=== PATIENT | female | born 1960 | race Caucasian/White ===

== ENCOUNTER → 2018-08-31 10:51 | Outpatient (CLI) | payer OTHER, SELFPAY ==
[2018-08-31 12:37] LABS: Alanine Aminotransferase 37 IU/L (9-52); Aspartate Aminotransferase 26 IU/L (14-36); BUN Creatinine Ratio 21.4 (6-22); Blood Urea Nitrogen 15 mg/dL (7-17); Calcium 9.5 mg/dL (8.4-10.2); Carbon Dioxide 27 mmol/L (22-32); Chloride 107 mmol/L (98-107); Cholesterol 183 mg/dL (140-199); Estimated Glomerular Filt Rate > 60.0 mL/min (>60); Glucose 94 mg/dL (70-100); HDL Cholesterol 44 mg/dL (40-60); HEMOLYSIS < 15 (0-50); LDL Cholesterol Calculated 113 mg/dL (<100); Potassium 4.5 mmol/L (3.4-5.1); Sodium 140 mmol/L (137-145); Triglycerides 132 mg/dL (35-150)
[2018-08-31 12:54] LABS: Vitamin D 25 Hydroxy (D3) 34.8 ng/mL (30.0-100.0)
== END ==
PROVIDERS: PCP Internal Medicine; Visit Provider Internal Medicine
DX: I10 Essential (primary) hypertension (principal); E78.2 Mixed hyperlipidemia; E55.9 Vitamin D deficiency, unspecified
CPT/HCPCS: 36415; 80048; 80061; 82306; 84450; 84460

== ENCOUNTER → 2018-10-06 11:27 | Outpatient (CLI) | payer OTHER, SELFPAY | PROVIDERS: PCP Internal Medicine; Visit Provider Physician Assistant | DX: L02.92 Furuncle, unspecified (principal) | CPT/HCPCS: 87070; 87075; 87077; 87186; 87205 ==

== ENCOUNTER → 2019-07-04 18:19 | Outpatient (ROUT) | payer OTHER, SELFPAY | PROVIDERS: PCP Internal Medicine; Visit Provider Internal Medicine | DX: R39.9 Unspecified symptoms and signs involving the genitourinary system (principal) | CPT/HCPCS: 87077; 87086; 87147 ==

== ENCOUNTER → 2019-07-18 17:13 | Outpatient (ROUT) | payer OTHER, SELFPAY | PROVIDERS: PCP Internal Medicine; Visit Provider Internal Medicine | DX: R39.9 Unspecified symptoms and signs involving the genitourinary system (principal) | CPT/HCPCS: 87086 ==

== ENCOUNTER → 2019-07-23 12:50 | Outpatient (CLI) | payer OTHER, SELFPAY ==
--- NOTE | 2019-07-23 | DI.MRI.S_ITS ---
PROCEDURE: MR PELIS WO/W CON INDICATIONS: Intra-abdominal and pelvic swelling, mass and lump. Tube left buttock region mass TECHNIQUE: Noncontrast coronal T1 spin echo and STIR, sagittal T1 spin echo with fat saturation and STIR, axial T1 spin echo and T2 fast spin echo with fat saturation. After the administration of contrast, axial/sagittal/coronal T1 spin echo with fat saturation through the pelvis. COMPARISON: None. FINDINGS: Image quality: Excellent. Bones: The visualized bone marrow demonstrates normal signal on all sequences. The overlying cortex appears intact. No abnormal intraosseous enhancement. Soft tissues: No soft tissue masses are visualized. The scanned muscles demonstrate normal overall bulk and internal signal. Subcutaneous tissues appear normal as well. No abnormal soft tissue enhancement. Unremarkable appearance of uterus. No adnexal masses. No buttock region mass is identified. IMPRESSION: Unremarkable MRI of the pelvis with and without contrast. No buttock region mass is identified. Dictated by: Kel Carrizales M.D. on 07/23/2019 at 16:14 Approved by: Kel Carrizales M.D. on 07/23/2019 at 16:16
[2019-07-23 13:24] LABS: Hematocrit 44.9 % (36-46); Hemoglobin 15.5 g/dL (12.0-16.0); Mean Corpuscular HGB Conc 34.5 % (30-36); Mean Corpuscular Hemoglobin 31.6 PG (26-34); Mean Corpuscular Volume 91.7 fL (80-100); Platelet Count 195 X10^3/uL (150-400); White Blood Cell Count 7.4 X10^3/uL (4.5-11.0)
[2019-07-23 13:50] LABS: Alanine Aminotransferase 25 IU/L (<35); Albumin 4.5 g/dL (3.5-5.0); Albumin Globulin Ratio 1.4 (1.0-2.8); Alkaline Phosphatase 66 U/L (38-126); Aspartate Aminotransferase 27 IU/L (14-36); BUN Creatinine Ratio 25.4 (6-22); Bilirubin Total 0.8 mg/dL (0.2-1.3); Blood Urea Nitrogen 16 mg/dL (7-17); Calcium 9.6 mg/dL (8.4-10.2); Carbon Dioxide 29 mmol/L (22-32); Chloride 105 mmol/L (98-107); Estimated Glomerular Filt Rate > 60.0 mL/min (>60); Globulin 3.2 g/dL (1.7-4.1); Glucose 100 mg/dL (70-100); HEMOLYSIS < 15 (0-50); Lactate Dehydrogenase 416 U/L (313-618); Potassium 4.6 mmol/L (3.4-5.1); Sodium 140 mmol/L (137-145); Total Protein 7.7 g/dL (6.3-8.2)
[2019-07-23 13:51] LABS: Neutrophils Absolute Manual 5106 /uL (3000-5900); RBC Morphology Normal Morphology; Total Cells Counted 100
[2019-07-23 13:52] LABS: C-Reactive Protein Quant < 0.5 mg/dL (<1.0)
[2019-07-23 14:01] LABS: Erythrocyte Sedimentation Rate 5 MM/HR (0-20)
== END ==
PROVIDERS: PCP Internal Medicine; Referring Provider Internal Medicine; Visit Provider Internal Medicine
DX: R19.00 Intra-abdominal and pelvic swelling, mass and lump, unspecified site (principal)
CPT/HCPCS: 72197; 80053; 83615; 85025; 85651; 86140

== ENCOUNTER → 2019-09-04 09:03 | Outpatient (CLI) | payer OTHER, SELFPAY ==
[2019-09-05 20:20] LABS: COVID19 Sendout Not Detected (Not Detect)
== END ==
PROVIDERS: PCP Internal Medicine; Visit Provider Registered Nurse
DX: Z01.818 Encounter for other preprocedural examination (principal)
CPT/HCPCS: 87635

== ENCOUNTER 2019-09-08 06:54 | Day surgery (SDC) | payer OTHER, SELFPAY ==
[2019-09-04 15:20] VITALS: BMI 38.7
[2019-09-08] VITALS (11 sets, daily range): BP systolic 123–176; BP diastolic 75–115; PULSE 72–85; RESP 12–19; TEMP 35.9–36.3; O2SAT 95–98; BMI 35.9
--- NOTE | 2019-09-08 | PATH_ITS ---
[facility] Accession Number: [id number] . 01 Material submitted: . back - LEFT LOWER BACK MASS . 01 Diagnosis: Left Lower Back, Excision: Mature adipose tissue consistent with lipoma. MRV 09/10/2019 1236 Local . 01 Electronically signed: . Octavia Hu MD, Dermatopathologist NPI- [id number] . 01 Gross description: . LEFT LOWER BACK MASS: Received in formalin is 1 piece of adipose tissue measuring 11.7 x 9.5 x 5.0 cm. Sql Programmer sections are submitted in 6 cassettes. /A 09/09/2019 1006 Local . 01 Pathologist provided ICD-10: D17.9 . 01 CPT . 829009 Performed at: [facility] [id number], [place], [place] [id number] MD Bobo Parra MD Phone: [phone]
[2019-09-08] MEDS: LACTATED RINGERS 1,000 ML 42 ML IV (07:43)
--- NOTE | 2019-09-08 07:44 | PM.PREOP ---
Pre-operative Note COVID-19 COVID-19 status: Negative Result date/Date tested (Pos, Neg/Pending): 09/06/19 Interval Note History & Physical reviewed/Exam performed by Physician: Yes Changes to H&P: No
[2019-09-08] MEDS: CLINDAMYCIN 900 MG/50 ML PIGGYBACK 50 MG IV (07:58)
--- NOTE | 2019-09-08 08:24 | SUR.OPER ---
Lateral on padded OR bed, head on pillow, gel axillary roll in place, bottom leg bent with gel pad under knee to foot, upper leg straight and supported with pillows. Upper arm supported by pillows and secured over bottom arm to padded arm board. Safety belt at hip, tape over blanket lower legs.
[2019-09-08] MEDS: BUPIVACAINE 0.5% (PF) VIAL 30 ML INJ (08:30)
--- NOTE | 2019-09-08 09:17 | SUR.PHASEI ---
Report given to Chad Amaya RN. Pt awake, talking, Dressing CDI per RAMIRO Rodrigues
--- NOTE | 2019-09-08 09:27 | PM.OP.1 ---
Operative Date/Time/Diagnoses Date of procedure: 09/08/19 Time of procedure: 09:12 Pre-op diagnosis: Mass left lower back/flank area Post-op diagnosis: same (Probable lipoma) Procedure & Clinicians Procedure: Excision of mass measuring 12 x 8 cm Same procedure as scheduled: Yes Indications: Patient with a large mass on her left lower back. She has localized pain. She has asked that it be removed. Surgeon: All Vlila Click Yes if Unassisted: Yes Anesthesia Type: General Operative Notes Findings: Mass consistent with a lipoma clinically Closure Type: primary Specimen(s): other (Mass) Prosthetic devices, grafts, tissues, transplants, or devices: None Estimated Blood Loss (mL): 15 Blood products transfused: none Procedure in detail: The patient was placed supine on the operating room table and underwent general LMA anesthesia. She was then turned in a right lateral decubitus with padding to appropriate areas. She was prepped and draped in the usual fashion. A transverse incision was made overlying the mass. Was carried down the level the mass. The mass with a large lobulated fatty a fair. I dissected with blunt and sharp dissection removing it from interdigitated pockets in the subcu fat. The mass was excised in its entirety. Meticulous hemostasis was achieved. The closure was in 3 layers. The deepest layer of fat followed by more superficial layer followed by this skin with a running 4 0 Vicryl subcuticular stitch. Steri-Strips and Mastisol were applied. The patient was placed on her bed awakened extubated taken recovery area in good condition. Complications: none Post-operative Condition: stable Disposition: PACU
[2019-09-08] MEDS: fentaNYL 100 MCG/2 ML INJ IV ×2 (09:38→09:43)
[2019-09-08] MEDS: OXYCODONE/ACETAMINOPHEN 5/325 TABLET 1 TAB PO ×2 (09:46→10:24)
== END 2019-09-08 10:50 | disposition home or self-care (01) ==
PROVIDERS: PCP Internal Medicine; Referring Provider Specialist; Visit Provider Specialist
PROC: (CPT 21931; principal; 2019-09-08 07:45)
DX: R22.2 Localized swelling, mass and lump, trunk (principal); I10 Essential (primary) hypertension; E78.5 Hyperlipidemia, unspecified; G47.33 Obstructive sleep apnea (adult) (pediatric)
CPT/HCPCS: 21931; J1100; J1885; J2250; J2405; J2704; J3010

== ENCOUNTER → 2019-09-16 18:58 | Outpatient (ROUT) | payer OTHER, SELFPAY | PROVIDERS: PCP Internal Medicine; Visit Provider Internal Medicine | DX: H60.92 Unspecified otitis externa, left ear (principal) | CPT/HCPCS: 87070; 87075; 87077; 87147; 87205 ==

== ENCOUNTER → 2019-09-27 08:14 | Outpatient (CLI) | payer OTHER, SELFPAY ==
[2019-09-27 09:51] LABS: Add Manual Diff / Slide Review NO; Basophils Absolute Auto 0 /uL (0-100); Basophils Percent Auto 0.7 % (0-2); Eosinophils Absolute Auto 100 /uL (0-450); Eosinophils Percent Auto 1.1 % (2-4); Hematocrit 47.2 % (36-46); Hemoglobin 15.9 g/dL (12.0-16.0); Lymphocytes Absolute Auto 1200 /uL (1100-4500); Lymphocytes Percent Auto 18.7 % (25-40); Mean Corpuscular HGB Conc 33.7 % (30-36); Mean Corpuscular Hemoglobin 30.8 PG (26-34); Mean Corpuscular Volume 91.4 fL (80-100); Monocytes Absolute Auto 300 /uL (0-900); Monocytes Percent Auto 5.2 % (3-14); Neutrophils Absolute Auto 4700 /uL (1500-7000); Neutrophils Percent Auto 74.3 % (50-75); Platelet Count 198 X10^3/uL (150-400); Red Blood Cell Count 5.16 X10^6/uL (4.0-5.2); Red Cell Distribution Width 13.2 % (11.6-14.8); White Blood Cell Count 6.3 X10^3/uL (4.5-11.0)
[2019-09-27 11:10] LABS: Alanine Aminotransferase 26 IU/L (<35); Albumin 4.5 g/dL (3.5-5.0); Albumin Globulin Ratio 1.7 (1.0-2.8); Alkaline Phosphatase 76 U/L (38-126); Aspartate Aminotransferase 26 IU/L (14-36); BUN Creatinine Ratio 17.5 (6-22); Blood Urea Nitrogen 11 mg/dL (7-17); Calcium 9.9 mg/dL (8.4-10.2); Carbon Dioxide 27 mmol/L (22-32); Chloride 107 mmol/L (98-107); Cholesterol 200 mg/dL (140-199); Estimated Glomerular Filt Rate > 60.0 mL/min (>60); Globulin 2.6 g/dL (1.7-4.1); Glucose 97 mg/dL (70-100); HDL Cholesterol 62 mg/dL (40-60); HEMOLYSIS < 15 (0-50); LDL Cholesterol Calculated 115 mg/dL (<100); Potassium 4.8 mmol/L (3.4-5.1); Sodium 140 mmol/L (137-145); Total Protein 7.1 g/dL (6.3-8.2); Triglycerides 114 mg/dL (35-150); Uric Acid 5.3 mg/dL (2.5-6.2)
[2019-09-27 11:39] LABS: TSH w/ Reflex to FT4 0.86 uIU/mL (0.47-4.68)
[2019-09-27 15:31] LABS: Appearance Urine UA CLEAR; Bilirubin Urine UA NEGATIVE (NEGATIVE); Color Urine UA YELLOW; Glucose Urine UA NEGATIVE (Negative); Ketones Urine UA NEGATIVE (NEGATIVE); Leukocyte Esterase Urine UA 1+ (NEGATIVE); Nitrite Urine UA NEGATIVE (Negative); Occult Blood Urine UA 1+ (Negative); Protein Urine UA NEGATIVE (Negative); Specific Gravity Urine UA 1.015 (1.000-1.035); Urobilinogen Urine UA 0.2 E.U./dL (0.2)
[2019-09-27 15:51] LABS: Bacteria Urine Few (2-10); Culture Indicated Urine Specimen Cultured; RBC Urine 0-1/HPF (0-5/HPF); Squamous Epithelial Cell Urine 1-5 /HPF (0-5/HPF); WBC Urine 1-5/HPF (0-5/HPF); pH Urine UA 6.5 (4.5-8.0)
[2019-10-03 01:36] LABS: Aldosterone/Renin Activity Rat 12.8 (0.0-30.0); Plama Renin, LC/MS/MS 0.571 ng/mL/hr (0.167-5.380)
== END ==
PROVIDERS: PCP Internal Medicine; Referring Provider Internal Medicine; Visit Provider Internal Medicine
DX: H60.92 Unspecified otitis externa, left ear (principal); G47.33 Obstructive sleep apnea (adult) (pediatric); I10 Essential (primary) hypertension; E78.5 Hyperlipidemia, unspecified
CPT/HCPCS: 36415; 80053; 80061; 81001; 82088; 84244; 84443; 84550; 85025; 87086

== ENCOUNTER → 2019-10-13 06:44 | Outpatient (CLI) | payer OTHER, SELFPAY ==
--- NOTE | 2019-10-13 07:02 | DI.ECHO.S_ITS ---
Echocardiogram Report + + :Name: CHRISTOS BARKLEY Study Date: 10/13/2019 Height: 66 in : :[facility] Weight: 224 lb : : Gender: Female BSA: 2.1 m2 : :: 1960 Age: 59 yrs BP: 140/88 mmHg: :Reason For Study: MURMUR : :Ordering Physician: CHRIS SCHMITZ : :Rufus Performed By: Yue Asif : :Referring: CHRIS SCHMITZ L : + + Interpretation Summary Borderline concentric left ventricular hypertrophy with ejection fraction 60- 65%. Mild aortic valve sclerosis. No valvular regurgitation. Mildly enlarged ascending aorta. Procedure: A two-dimensional transthoracic echocardiogram with color flow and Doppler was performed. The study quality was technically adequate. There is no prior echocardiogram noted for this patient. The patient was in sinus rhythm with heart rates between 65-72 bpm during the exam. Left Ventricle: The left ventricle is normal in size. There is borderline concentric left ventricular hypertrophy. The ejection fraction is estimated to be 60-65%. There are no focal wall motion abnormalities. Diastolic parameters suggest probable normal left ventricular diastolic function and normal filling pressures. Right Ventricle: The right ventricle is normal in size and function. Atria: Both atria are normal in size. There is no Doppler evidence for an interatrial shunt. Mitral Valve: The mitral valve is normal in structure and function. There is trace mitral regurgitation. Aortic Valve: The aortic valve is trileaflet. The aortic valve opens well. There is mild aortic valve sclerosis. There is no aortic valve stenosis. No aortic regurgitation is present. Tricuspid Valve: The tricuspid valve is normal in structure and function. Pulmonary artery pressures cannot be estimated because of the lack of a measurable TR jet velocity but the IVC suggests a CVP of around 3 mmHg. Pulmonic Valve: The pulmonic valve is not well seen, but is grossly normal. There is no pulmonic valvular regurgitation. Great Vessels: The aortic root is normal size. The ascending aorta is mildly enlarged. The IVC is of normal diameter and collapses greater than 50% with a sniff. This suggests a low right atrial pressure of 3 mm Hg. Pericardium/ Pleura There is no pericardial effusion. There is no pleural effusion. MMode/2D Measurements & Calculations LVIDd: 5.4 cm LVOT diam: 2.2 cm LVIDs: 3.5 cm Ao root diam: 3.1 cm FS: 34.3 % asc Aorta Diam: 3.7 cm EPSS: 1.6 cm Ao Arch Diam (Prox Trans): 2.4 cm IVSd: 1.1 cm LVPWd: 1.1 cm LV pierce. diameter/BSA (cm/m^2): 2.6 LV sys. diameter/BSA (cm/m^2): 1.7 LA A2 area: 21.7 cm2 RA long axis: 4.8 cm LA A4 area: 15.9 cm2 RA area: 14.9 cm2 LA length (vol): 4.8 cm RA vol: 39.4 ml LA vol: 61.2 ml RA : 18.8 ml/m2 LA vol index: 29.2 ml/m2 IVC diam: 1.2 cm RVD1 (basal): 3.0 cm TAPSE: 2.2 cm Doppler Measurements & Calculations Ao V2 max: 171.0 cm/sec LVOT Max Obinna: 85.8 cm/sec Ao V2 mean: 123.4 cm/sec LV V1 max P.9 mmHg Ao max P.7 mmHg LV V1 VTI: 19.5 cm Ao mean P.6 mmHg MASOOD(I,D): 1.9 cm2 Ao V2 VTI: 38.0 cm MASOOD(V,D): 1.9 cm2 sev ratio: 0.51 MASOOD indexed to BSA (cm^2/m^2): 0.91 MV E max obinna: 84.3 cm/sec PA V2 max: 70.8 cm/sec MV A max obinna: 78.8 cm/sec PA V2 mean: 47.0 cm/sec MV E/A: 1.1 PA mean P.0 mmHg Med Peak E' Obinna: 8.0 cm/sec PA pr(Accel): -10.1 mmHg E/E' med: 10.5 Lat Peak E' Obinna: 9.2 cm/sec E/E' lat: 9.2 E/e' average: 9.9 MV dec time: 0.20 sec SV(LVOT): 72.4 ml Electronically signed by: Jenny Parsons on Reading Physician:10/13/2019 11:52 AM
== END ==
PROVIDERS: PCP Internal Medicine; Referring Provider Internal Medicine; Visit Provider Internal Medicine
DX: I35.8 Other nonrheumatic aortic valve disorders (principal); I77.89 Other specified disorders of arteries and arterioles; R01.1 Cardiac murmur, unspecified
CPT/HCPCS: 93306

== ENCOUNTER → 2019-11-26 08:25 | Outpatient (CLI) | payer OTHER, SELFPAY ==
--- NOTE | 2019-11-26 08:39 | DI.MG.S_ITS ---
Patient Name: CHRISTOS BARKLEY date: 1960 Sex: F Attending Physician: NADIR Indications: Date: 11/26/2019 08:34 At the request of: CHRIS SCHMITZ Procedure: MM screening mammo BI BILATERAL DIGITAL SCREENING MAMMOGRAM 3D/2D WITH CAD: 11/26/2019 CLINICAL: Routine screening. Comparison is made to exams dated: 07/09/2017 mammogram, 04/12/2011 mammogram, and 04/14/2008 mammogram - [facility]. The tissue of both breasts is heterogeneously dense. This may lower the sensitivity of mammography. Current study was also evaluated with a Computer Aided Detection (CAD) system. No significant masses, calcifications, or other findings are seen in either breast. There has been no significant interval change. IMPRESSION: NEGATIVE There is no mammographic evidence of malignancy. A 1 year screening mammogram is recommended. This exam was interpreted at Station ID: [id number]. NOTE: For mammograms, a report in lay terms will be sent to the patient. Approximately 15% of breast malignancies will not be visualized mammographically. In the management of a palpable breast mass, a negative mammogram must not discourage biopsy of a clinically suspicious lesion. Electronically Signed By: Bobo palma/joseph:11/26/2019 10:26:01 letter sent: Normal Exam ACR BI-RADS Category 1: Negative 3341F
== END ==
PROVIDERS: PCP Internal Medicine; Referring Provider Internal Medicine; Visit Provider Obstetrics & Gynecology
DX: Z12.31 Encounter for screening mammogram for malignant neoplasm of breast (principal)
CPT/HCPCS: 77063; 77067

== ENCOUNTER → 2020-01-02 08:06 | Outpatient (CLI) | payer OTHER, SELFPAY ==
--- NOTE | 2020-01-02 | DI.MRI.S_ITS ---
PROCEDURE: MR LUMBAR SPINE WO/W CON INDICATIONS: Radiculopathy, lumbar region TECHNIQUE: Noncontrast sagittal T1 spin echo and T2 fast spin echo, sagittal STIR, axial T1 and T2 fast spin echo through the lumbar spine. In cases with scoliosis, additional coronal T2 fast spin echo may be performed. After the administration of contrast, sagittal and axial T1 spin echo with fat saturation through the lumbar spine. COMPARISON: None. FINDINGS: Image quality: Excellent. Alignment and curvature: There is trace retrolisthesis of L4 on L5, trace anterolisthesis of L3 on L4 and L5 on S1. Marrow: Marrow is of normal overall signal. No acute vertebral body compression fractures. No suspicious marrow enhancement. Spinal cord: Conus medullaris terminates at the L1 level. Visualized spinal cord demonstrates normal signal, without suspicious enhancement. Paraspinous soft tissues: No paravertebral masses or abnormal enhancement. Mild to moderate dessication is present throughout the lumbar spine. L1-L2: No disc bulge, spinal stenosis and foraminal narrowing. Mild facet and ligamentum hypertrophy. L2-L3: Minimal disc bulge without spinal stenosis.No foraminal narrowing. Mild facet and ligamentum hypertrophy. L3-L4: Mild disc bulge with mild spinal stenosis. Mild left and mild to moderate right foraminal narrowing. Moderate facet and ligamentum hypertrophy. L4-L5: Minimal disc bulge with mild spinal stenosis.Moderate left and mild to moderate right foraminal narrowing. Mild facet and ligamentum hypertrophy. L5-S1: Minimal disc bulge with mild to moderate spinal stenosis. Severe left and moderate right foraminal narrowing. Mild facet and ligamentum hypertrophy. Bilateral pars defect is present at L5. IMPRESSION: 1. Multilevel disc bulges. 2. Multilevel spinal stenosis, predominately secondary to disc bulge, as well as facet/ligamentum arthropathy. 3. Foraminal narrowing, severe at L5-S1 secondary to anterolithesis of L5 on S1 and facet arthropathy. Dictated by: Mirian Leo M.D. on 01/02/2020 at 11:47 Approved by: Mirian Leo M.D. on 01/02/2020 at 12:32
== END ==
PROVIDERS: PCP Internal Medicine; Referring Provider Internal Medicine; Visit Provider Internal Medicine
DX: M51.16 Intervertebral disc disorders with radiculopathy, lumbar region (principal); M47.27 Other spondylosis with radiculopathy, lumbosacral region; M48.061 Spinal stenosis, lumbar region without neurogenic claudication; M48.07 Spinal stenosis, lumbosacral region; M43.17 Spondylolisthesis, lumbosacral region
CPT/HCPCS: 72158

== ENCOUNTER → 2020-01-16 14:13 | Outpatient (CLI) | payer OTHER, SELFPAY ==
--- NOTE | 2020-01-16 | DI.RAD.S_ITS ---
PROCEDURE: XR HUMERUS LT 2V INDICATIONS: Pain in left arm TECHNIQUE: 2 views of the humerus were acquired. COMPARISON: None. FINDINGS: Bones: No fractures or dislocations. No suspicious bony lesions. Soft tissues: No suspicious soft tissue calcifications. IMPRESSION: No definite radiographic abnormality. If pain persists with conservative management, consider cross sectional imaging such as CT or MRI for further assessment. Dictated by: Jair ARELLANO Interpreted: Tom Duron MD on 01/16/2020 at 15:44 Approved by: Tom Duron M.D. on 01/16/2020 at 16:41
== END ==
PROVIDERS: PCP Internal Medicine; Referring Provider Internal Medicine; Visit Provider Internal Medicine
DX: M79.602 Pain in left arm (principal)
CPT/HCPCS: 73060

== ENCOUNTER → 2020-05-22 08:05 | Outpatient (CLI) | payer OTHER, SELFPAY ==
[2020-05-22 08:51] LABS: Add Manual Diff / Slide Review NO; Basophils Absolute Auto 100 /uL (0-100); Basophils Percent Auto 0.9 % (0-2); Eosinophils Absolute Auto 200 /uL (0-450); Eosinophils Percent Auto 2.7 % (2-4); Hematocrit 45.7 % (36-46); Hemoglobin 15.3 g/dL (12.0-16.0); Lymphocytes Absolute Auto 1500 /uL (1100-4500); Mean Corpuscular HGB Conc 33.5 % (30-36); Mean Corpuscular Hemoglobin 30.6 PG (26-34); Mean Corpuscular Volume 91.4 fL (80-100); Monocytes Absolute Auto 500 /uL (0-900); Monocytes Percent Auto 8.2 % (3-14); Neutrophils Absolute Auto 4300 /uL (1500-7000); Neutrophils Percent Auto 65.2 % (50-75); Platelet Count 181 X10^3/uL (150-400); Red Blood Cell Count 5.01 X10^6/uL (4.0-5.2); Red Cell Distribution Width 13.3 % (11.6-14.8); White Blood Cell Count 6.6 X10^3/uL (4.5-11.0)
[2020-05-22 09:10] LABS: Alanine Aminotransferase 22 IU/L (<35); Albumin 4.1 g/dL (3.5-5.0); Albumin Globulin Ratio 1.5 (1.0-2.8); Alkaline Phosphatase 68 U/L (38-126); Aspartate Aminotransferase 25 IU/L (14-36); BUN Creatinine Ratio 21.9 (6-22); Blood Urea Nitrogen 14 mg/dL (7-17); Calcium 9.3 mg/dL (8.4-10.2); Carbon Dioxide 29 mmol/L (22-32); Chloride 106 mmol/L (98-107); Cholesterol 190 mg/dL (140-199); Estimated Glomerular Filt Rate > 60.0 mL/min (>60); Globulin 2.7 g/dL (1.7-4.1); Glucose 98 mg/dL (70-100); HDL Cholesterol 58 mg/dL (40-60); HEMOLYSIS < 15 (0-50); LDL Cholesterol Calculated 114 mg/dL (<100); Potassium 4.3 mmol/L (3.4-5.1); Sodium 137 mmol/L (137-145); Total Protein 6.8 g/dL (6.3-8.2); Triglycerides 88 mg/dL (35-150)
== END ==
PROVIDERS: PCP Internal Medicine; Referring Provider Physician Assistant; Visit Provider Physician Assistant
DX: I10 Essential (primary) hypertension (principal); E78.2 Mixed hyperlipidemia
CPT/HCPCS: 36415; 80053; 80061; 85025

== ENCOUNTER → 2020-07-07 14:11 | Outpatient (CLI) | payer OTHER, SELFPAY ==
[2020-07-07] MEDS: COVID-19 VACC #1, MRNA(MOD) 100 MCG/0.5 ML VIAL IM (14:15)
== END ==
PROVIDERS: PCP Internal Medicine; Visit Provider Internal Medicine
DX: Z23 Encounter for immunization (principal)
CPT/HCPCS: 0011A; 91301

== ENCOUNTER → 2020-08-04 09:01 | Outpatient (CLI) | payer OTHER, SELFPAY ==
[2020-08-04] MEDS: COVID-19 VACC #2, MRNA(MOD) 100 MCG/0.5 ML VIAL IM (09:08)
== END ==
PROVIDERS: PCP Internal Medicine; Visit Provider Internal Medicine
DX: Z23 Encounter for immunization (principal)
CPT/HCPCS: 0012A; 91301

== ENCOUNTER → 2021-08-09 09:47 | Outpatient (CLI) | payer OTHER, SELFPAY ==
--- NOTE | 2021-08-09 | DI.RAD.S_ITS ---
PROCEDURE: XR FOOT LT MIN 3V INDICATIONS: pain of left heel(plantar Faciaitus) TECHNIQUE: 3 views of the foot were acquired. COMPARISON: [facility], , FOOT 3V RIGHT, 09/16/2009, 9:06. [facility], , FOOT 3V RIGHT, 01/07/2007, 11:16. FINDINGS: Bones: No fractures or dislocations. No suspicious bony lesions. There is a plantar calcaneal spur. Soft tissues: No tibiotalar joint effusion. Achilles tendon appears normal. IMPRESSION: 1. No acute abnormality. 2. Plantar calcaneal spur. Dictated by: James Campos M.D. on 08/09/2021 at 10:17 Approved by: James Campos M.D. on 08/09/2021 at 10:20
== END ==
PROVIDERS: PCP Physician Assistant; Referring Provider Physician Assistant; Visit Provider Physician Assistant
DX: M77.32 Calcaneal spur, left foot (principal); M79.672 Pain in left foot
CPT/HCPCS: 73630

== ENCOUNTER → 2021-10-05 06:37 | Outpatient (CLI) | payer OTHER, SELFPAY ==
--- NOTE | 2021-10-05 06:38 | DI.US.S_ITS ---
PROCEDURE: US ABD AORTA ANEURYSM SCREEN INDICATIONS: SCREEN TECHNIQUE: Real time scanning was performed of the aorta and iliac arteries, with image documentation. COMPARISON: None. FINDINGS: Aorta: Proximal aortic diameter measures 2 cm. Mid-aorta measures 1.6 cm. Distal aortic diameter is 1.5 cm. Iliac arteries: Right common iliac artery measures 1.1 cm. Left common iliac artery measures 1.1 cm. IMPRESSION: No abdominal aortic aneurysm. Dictated by: Epi Felix M.D. on 10/05/2021 at 11:06 Approved by: Epi Felix M.D. on 10/05/2021 at 11:07
== END ==
PROVIDERS: PCP Physician Assistant; Referring Provider Physician Assistant; Visit Provider Physician Assistant
DX: Z13.6 Encounter for screening for cardiovascular disorders (principal); I77.89 Other specified disorders of arteries and arterioles
CPT/HCPCS: 76706

== ENCOUNTER → 2021-10-31 15:41 | Outpatient (CLI) | payer OTHER, SELFPAY ==
--- NOTE | 2021-10-31 15:53 | DI.RAD.S_ITS ---
PROCEDURE: XR RIBS RT MIN 3V W CXR 1V INDICATIONS: RIB PAIN ON RIGHT SIDE TECHNIQUE: 2 views of the right ribs were acquired, along with a single view chest. COMPARISON: None. FINDINGS: Surgical changes and devices: None. Bones and chest wall: No fractures or dislocations. No suspicious bony lesions. Overlying soft tissues appear unremarkable. Lungs and pleura: No pleural effusions or pneumothorax. There is a questionable right apical pulmonary nodule. Mediastinum: Mediastinal contours appear normal. Heart size is normal. IMPRESSION: 1. No displaced rib fractures visualized. If pain persists, followup imaging in 5-7 days is recommended to exclude occult fracture. 2. Questionable right apical pulmonary nodule. Short interval follow-up or lordotic view recommended to further characterize findings. Dictated by: Sheridan Ascencio M.D. on 10/31/2021 at 16:52 Approved by: Sheridan Ascencio M.D. on 10/31/2021 at 16:53
== END ==
PROVIDERS: PCP Physician Assistant
DX: R07.81 Pleurodynia (principal)
CPT/HCPCS: 71101

== ENCOUNTER → 2021-11-21 15:09 | Outpatient (CLI) | payer OTHER, SELFPAY ==
--- NOTE | 2021-11-21 | DI.RAD.S_ITS ---
PROCEDURE: XR RIBS RT 2V INDICATIONS: Pleurodynia TECHNIQUE: 2 views of the right ribs were acquired. COMPARISON: None. FINDINGS: Surgical changes and devices: None. Bones and chest wall: No fractures or dislocations. No suspicious bony lesions. Overlying soft tissues appear unremarkable. Lungs and pleura: The visualized lung appears clear. No pleural effusions or pneumothorax are visible. IMPRESSION: No displaced fracture identified radiographically. Dictated by: Trent Marrero M.D. on 11/21/2021 at 15:59 Approved by: Trent Marrero M.D. on 11/21/2021 at 16:01
== END ==
PROVIDERS: PCP Physician Assistant; Referring Provider Physician Assistant; Visit Provider Physician Assistant
DX: R07.81 Pleurodynia (principal)
CPT/HCPCS: 71100

== ENCOUNTER → 2021-11-29 15:10 | Outpatient (CLI) | payer OTHER, SELFPAY ==
--- NOTE | 2021-11-29 15:14 | DI.RAD.S_ITS ---
PROCEDURE: XR ABDOMEN 1V INDICATIONS: Abdominal Pain TECHNIQUE: One view of the abdomen acquired. COMPARISON: None. FINDINGS: Surgical changes and devices: None. Bowel: Bowel gas pattern is normal. Soft tissues: No suspicious abdominal calcifications. Visualized solid organ contours appear normal in size. Bones: No suspicious bony lesions. Thoracolumbar dextroscoliosis IMPRESSION: Nonobstructive bowel gas pattern Approved by: Andrei Buckley M.D. on 11/29/2021 at 17:31
== END ==
PROVIDERS: PCP Physician Assistant; Referring Provider Physician Assistant; Visit Provider Physician Assistant
DX: R10.12 Left upper quadrant pain (principal)
CPT/HCPCS: 74018

== ENCOUNTER → 2021-12-06 08:09 | Outpatient (CLI) | payer OTHER, SELFPAY ==
--- NOTE | 2021-12-06 | DI.MG.S_ITS ---
BILATERAL DIGITAL SCREENING MAMMOGRAM 3D/2D WITH CAD: 12/06/2021 CLINICAL: Routine screening. Comparison is made to exams dated: 11/26/2019 mammogram, 07/09/2017 mammogram, and 04/12/2011 mammogram - [facility]. Both breasts are heterogeneously dense, which may obscure small masses (category c / 51-75% glandular tissue). Current study was also evaluated with a Computer Aided Detection (CAD) system. No significant masses, calcifications, or other findings are seen in either breast. There has been no significant interval change. IMPRESSION: NEGATIVE There is no mammographic evidence of malignancy. A 1 year screening mammogram is recommended. Based on the Tyrer Cuzick model (a risk assessment model) the patient's lifetime risk is 6.9% and her 10 year risk is 2.8%. According to the ACR, ACS, and NCCN guidelines, an annual breast MRI exam along with mammogram is recommended if the patient's lifetime risk is 20% or greater. This exam was interpreted at Station ID: [id number]. NOTE: For mammograms, a report in lay terms will be sent to the patient. Approximately 15% of breast malignancies will not be visualized mammographically. In the management of a palpable breast mass, a negative mammogram must not discourage biopsy of a clinically suspicious lesion. Electronically Signed By: Trent de los santos/joseph:12/06/2021 09:17:18 letter sent: Normal Exam ACR BI-RADS Category 1: Negative 3341F
== END ==
PROVIDERS: PCP Physician Assistant; Referring Provider Physician Assistant; Visit Provider Physician Assistant
DX: Z12.31 Encounter for screening mammogram for malignant neoplasm of breast (principal)
CPT/HCPCS: 77063; 77067

== ENCOUNTER → 2023-06-12 15:09 | Outpatient (CLI) | payer OTHER, SELFPAY ==
--- NOTE | 2023-06-12 | DI.RAD.S_ITS ---
PROCEDURE: XR LUMBAR SPINE 2-3V INDICATIONS: BACK PAIN TECHNIQUE: 3 views of the lumbar spine were acquired. COMPARISON: [facility], MR, MR LUMBAR SPINE WO/W CON, 01/02/2020, 8:31. FINDINGS: Bones: 5 [id number] vertebrae are present. No vertebral body compression fractures. Grade 1-2 anterolisthesis of L5 on S1 with bilateral pars defects. Retrolisthesis of L4 on L5 of approximately 3 mm. Severe degenerative changes at L5-S1 with disc height loss, endplate sclerosis, facet arthropathy and marked osseous neural foraminal narrowing. Remainder of the spine demonstrates mild to moderate multilevel degenerative changes. Dextroconvex curvature of the spine centered at L2-L3. No suspicious bony lesions. Soft tissues: Overlying bowel gas pattern is normal. No suspicious soft tissue calcifications. Calcification of the abdominal aorta. IMPRESSION: 1. No acute bony abnormality. 2. Multilevel degenerative changes, worst at L5-S1 where there is grade 1-2 anterolisthesis of L5 on S1 with bilateral pars defects. The degree of spondylolisthesis has notably increased compared to MRI dated January 02, 2020. If clinical symptoms persist, consider repeat MRI for further evaluation. Dictated by: Epi Vera M.D. on 06/12/2023 at 17:09 Approved by: Epi Vera M.D. on 06/12/2023 at 17:12
== END ==
LOC: RAD 15:10
PROVIDERS: PCP Physician Assistant; Referring Provider Physician Assistant; Visit Provider Physician Assistant
DX: M47.817 Spondylosis without myelopathy or radiculopathy, lumbosacral region (principal); M47.816 Spondylosis without myelopathy or radiculopathy, lumbar region; M43.17 Spondylolisthesis, lumbosacral region; M54.50 Low back pain, unspecified
CPT/HCPCS: 72100

== ENCOUNTER → 2023-12-20 06:57 | Outpatient (CLI) | payer OTHER, SELFPAY ==
--- NOTE | 2023-12-20 06:57 | DI.ECHO.S_ITS ---
[facility] : : [id number] : [place] : : [id number] : : Phone: [phone] Echocardiogram Report + + :Name: CHRISTOS BARKLEY Study Date: 12/20/2023 Height: 66 in : :[facility] Weight: 230 lb : : Gender: Female BSA: 2.1 m2 : :: 1960 Age: 63 yrs BP: 150/100 mmHg: :Reason For Study: HEART MURMUR : :Ordering Physician: ROBYN, : :SANDEEP Performed By: Yue Asif : :Referring: SANDEEP SKINNER : + + Interpretation Summary 1) Mildly increased left ventricular thickness (concentric) with normal size, normal wall motion, and normal systolic function (EF 55-60%). 2) Normal right ventricular size and function. 3) There is mild aortic stenosis (valve area 1.8cm2, mean graadient 10mmHg, severity ratio 0.45). 4) Compared to the Echo done 10/13/2019, mild aortic stenosis is present on this study. Procedure: A two-dimensional transthoracic echocardiogram with color flow and Doppler was performed. The study quality was technically adequate. Comparison is made with the echocardiogram of 10/13/2019. The patient was in sinus rhythm with heart rates between 68-80 bpm during the exam. Left Ventricle: There is mild concentric left ventricular hypertrophy. Proximal septal thickening is noted. The left ventricle is normal in size. The ejection fraction is estimated to be 55-60%. Diastolic parameters suggest probable normal left ventricular diastolic function and normal filling pressures. Right Ventricle: The right ventricle is normal in size and function. Atria: The left atrial size is normal. Right atrial size is normal. There is no Doppler evidence for an interatrial shunt. Mitral Valve: The mitral valve is normal in structure and function. There is no mitral regurgitation noted. Aortic Valve: The aortic valve is trileaflet. There is mild aortic valve sclerosis. The aortic valve is slightly calcified. There is mild aortic stenosis. The calculated aortic valve area is 1.8 cm2. No aortic regurgitation is present. Tricuspid Valve: The tricuspid valve is normal in structure and function. There is trace tricuspid regurgitation. Pulmonary artery pressures cannot be estimated because of the lack of a measurable TR jet velocity. Pulmonic Valve: The pulmonic valve is not well visualized. There is no pulmonic valvular regurgitation. Great Vessels: The aortic root is normal size. The ascending aorta is at the upper limits of normal in size. The IVC is of normal diameter and collapses greater than 50% with a sniff. This suggests a low right atrial pressure of 3 mm Hg. Pericardium/ Pleura There is no pericardial effusion. There is no pleural effusion. MMode/2D Measurements & Calculations LVIDd: 5.0 cm LVOT diam: 2.3 cm LVIDs: 3.2 cm Ao root diam: 3.1 cm FS: 35.6 % asc Aorta Diam: 3.7 cm EPSS: 0.77 cm Ao Arch Diam (Prox Trans): 3.4 cm IVSd: 1.1 cm LVPWd: 1.1 cm LV pierce. diameter/BSA (cm/m^2): 2.4 LV sys. diameter/BSA (cm/m^2): 1.5 LA A2 area: 17.6 cm2 RA long axis: 4.7 cm LA A4 area: 12.4 cm2 RA area: 13.8 cm2 LA length (vol): 4.3 cm RA vol: 34.8 ml LA vol: 42.9 ml RA : 16.4 ml/m2 LA vol index: 20.2 ml/m2 IVC diam: 1.5 cm RVD1 (basal): 3.1 cm RVD2 (mid): 2.3 cm TAPSE: 2.0 cm Doppler Measurements & Calculations Ao V2 max: 225.2 cm/sec LVOT Max Obinna: 96.8 cm/sec Ao V2 mean: 150.7 cm/sec LV V1 max P.8 mmHg Ao max P.3 mmHg LV V1 VTI: 20.0 cm Ao mean P.3 mmHg MASOOD(I,D): 1.8 cm2 Ao V2 VTI: 44.4 cm MASOOD(V,D): 1.7 cm2 sev ratio: 0.45 MASOOD indexed to BSA (cm^2/m^2): 0.86 MV E max obinna: 64.0 cm/sec PA V2 max: 86.7 cm/sec MV A max obinna: 59.5 cm/sec PA V2 mean: 62.2 cm/sec MV E/A: 1.1 PA mean P.7 mmHg Med Peak E' Obinna: 8.0 cm/sec PA pr(Accel): 44.7 mmHg E/E' med: 8.0 Lat Peak E' Obinna: 10.9 cm/sec E/E' lat: 5.9 E/e' average: 6.9 MV dec time: 0.18 sec SV(LVOT): 80.7 ml Reading Physician:05:41 PM
== END ==
LOC: ECHO 06:57
PROVIDERS: PCP Physician Assistant; Referring Provider Internal Medicine Cardiovascular Disease; Visit Provider Internal Medicine Cardiovascular Disease
DX: I35.0 Nonrheumatic aortic (valve) stenosis (principal); I35.8 Other nonrheumatic aortic valve disorders; R01.1 Cardiac murmur, unspecified
CPT/HCPCS: 93306

== ENCOUNTER → 2024-06-30 16:09 | Outpatient (CLI) | payer OTHER, SELFPAY ==
--- NOTE | 2024-06-30 16:11 | DI.RAD.S_ITS ---
PROCEDURE: XR FOOT RT MIN 3V INDICATIONS: RT FOOT PAIN TECHNIQUE: 3 views of the foot were acquired. COMPARISON: [facility], , XR FOOT LT MIN 3V, 08/09/2021, 9:46. FINDINGS: Bones: No fractures or dislocations. No suspicious bony lesions. 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 Plantar calcaneal enthesophyte. Moderate degenerative changes about the tibiotalar joint space. Soft tissues: No tibiotalar joint effusion. Achilles tendon appears normal. 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 Moderate degenerative changes of the tibiotalar joint space. Dictated by: Ciro Reed M.D. on 06/30/2024 at 16:40 Approved by: Ciro Reed M.D. on 06/30/2024 at 16:41
== END ==
PROVIDERS: PCP Physician Assistant; Referring Provider Physician Assistant; Visit Provider Physician Assistant
DX: M19.071 Primary osteoarthritis, right ankle and foot (principal); M20.11 Hallux valgus (acquired), right foot; M79.671 Pain in right foot
CPT/HCPCS: 73630

== ENCOUNTER → 2024-07-23 07:56 | Outpatient (CLI) | payer OTHER, SELFPAY ==
--- NOTE | 2024-07-23 07:58 | DI.MG.S_ITS ---
MM screening mammo BI: 07/23/2024. BI-RADS: 1 CLINICAL: 64-year old female for bilateral screening mammogram. Tyrer-Cuzick lifetime risk of 7.6%. No personal or first-degree family history of breast cancer. PRIOR EXAMS 12/06/2021, 11/26/2019, 07/09/2017. MAMMOGRAPHY TECHNIQUE: 2D and 3D (tomosynthesis) digital mammographic views obtained, with additional images as needed for full coverage. Current study was also evaluated with a Computer Aided Detection (CAD) system. DENSITY C. The breasts are heterogeneously dense, which may obscure small masses. MAMMOGRAPHY FINDINGS Bilateral: No suspicious mass, asymmetry, microcalcification, or other abnormality seen. IMPRESSION: * No evidence of malignancy. RECOMMENDATIONS Bilateral * Annual screening mammography. OVERALL ASSESSMENT CATEGORY BI-RADS-1: Negative. The [employer] recommends annual screening mammography beginning at age 40 for women with average risk of breast cancer. ELECTRONICALLY SIGNED: Ale Marsh M.D. on 07/25/2024 at 01:48:53 PM PT Interpreting Station ID: [id number]
== END ==
PROVIDERS: PCP Physician Assistant; Referring Provider Physician Assistant; Visit Provider Physician Assistant
DX: Z12.31 Encounter for screening mammogram for malignant neoplasm of breast (principal); R92.333 Mammographic heterogeneous density, bilateral breasts
CPT/HCPCS: 77063; 77067

== ENCOUNTER 2024-09-14 02:15 | Emergency (ER) | payer OTHER, SELFPAY ==
[2024-09-14 02:35] VITALS: BP 134/95; PULSE 74; RESP 15; TEMP 36.8; O2SAT 98; BMI 38.7
--- NOTE | 2024-09-14 02:47 | ED.LOWEXIN ---
HPI - Extremity Injury (Lower) General Chief Complaint: Extremity Injury, Lower Stated Complaint: L Pinky Toe Injury Time Seen by Provider: 09/14/24 02:47 Source: patient Mode of arrival: Ambulatory History of Present Illness HPI Narrative: 64-year-old female with past medical history of hyperlipidemia hypertension presenting for left pinky toe pain, states that she was walking to the bathroom accident kicked her safe. Denies any other injuries Related Data Home Medications ?Medication ?Instructions ?Recorded ?Confirmed lisinopril 10 mg tablet 40 mg PO HS ##0 02/19/11 09/14/24 atorvastatin 20 mg tablet 40 mg PO DAILY 08/10/17 09/14/24 meloxicam 7.5 mg tablet 7.5 mg PO DAILY 09/08/19 09/14/24 amlodipine 5 mg tablet 5 mg PO DAILY 09/14/24 09/14/24 Allergies Allergy/AdvReac Type Severity Reaction Status Date / Time latex (LATEX) Allergy Severe RASH Verified 09/14/24 02:32 Penicillins (PENICILLINS) Allergy Severe Rash, Verified 09/14/24 02:32 swelling as a child adhesive (ADHESIVE) Allergy Intermediate SKIN Verified 09/14/24 02:32 IRRITATION Review of Systems Review of Systems Narrative: General: Denies fever, chills, weight loss HEENT: Denies headache, eye drainage, eye irritation, head trauma, sore throat, voice change Cardiovascular: Denies any chest pain, palpitations, tachycardia Respiratory: Denies any shortness of breath, cough, wheeze, stridor GI/: Denies any abdominal pain, nausea, vomiting, diarrhea, bright red blood per rectum, melanotic stools, urinary frequency, urinary retention, dysuria, hematuria MSK: Pain to the left pinky toe Skin: Denies any rashes, lesions, discoloration Neuro: Denies any headache, lightheadedness, dizziness, fainting, weakness Psych: Denies SI/HI Patient History Medical History (Updated 09/14/24 @ 03:19 by Dae Mcpherson DO) Arthritis MRSA (methicillin resistant Staphylococcus aureus) infection Sleep apnea Hyperlipidemia HTN (hypertension) Family history of colon cancer Family history of uterine cancer Lichen sclerosus Surgical History History of knee replacement, total (~01/2015) History of total knee replacement (~07/2014) Family History Father Hypertension Renal failure Mother Primary bone cancer Sister Family history of colon cancer Family history of uterine cancer Social History number of children: 3 household members: spouse Smoking Status: Current every day smoker alcohol intake: current Smoking Status: Current every day smoker tobacco type: cigarettes alcohol intake frequency: holidays/special occasions only Exam Narrative Exam Narrative: General: Cooperative, well-developed, not in acute distress HEENT: Normocephalic, atraumatic, PERRLA, normal sclera, eyelids normal Neck: Active full range of motion, atraumatic Chest: Normal to inspection, negative crepitus, no overlying erythema ecchymosis Respiratory: Normal respiratory effort, not in acute respiratory distress, clear to auscultation bilaterally negative cough, wheeze, tachypnea, rhonchi, rales Cardiology: Regular rate rhythm negative gallop, murmur, rubs GI/: No tenderness to palpation, soft, non rigid, normal to inspection, exam deferred MSK: Patient with ecchymosis noted to the left pinky toe, minor tenderness to palpation of the left pinky toe otherwise neurovascularly intact lower extremity Skin: No rashes or lesions noted Neuro: Alert awake oriented x3, moves all 4 extremities spontaneously, cranial nerves intact, able to answer all questions appropriately follows commands appropriately Psych: Cooperative, negative suicidal or homicidal ideations Initial Vital Signs Initial Vital Signs: Vital Signs Temperature 98.3 F 09/14/24 02:35 Pulse Rate 74 09/14/24 02:35 Respiratory Rate 15 09/14/24 02:35 Blood Pressure 134/95 H 09/14/24 02:35 Pulse Oximetry 98 09/14/24 02:35 Oxygen Delivery Method Room Air 09/14/24 02:35 Course Orders Ordered: ED Orders 09/14/24 02:48 XR toe LT min 2V Stat Vital Signs Vital signs: Vital Signs - 8 hr 09/14/24 02:35 Temperature 98.3 F Pulse Rate 74 Respiratory Rate 15 Blood Pressure 134/95 H Pulse Oximetry 98 Oxygen Delivery Method Room Air MDM - Extremity Injury (Lower) Differential Diagnosis Differential diagnosis: Likely other (Fracture, sprain, contusion) Imaging Data Extremity x-ray #1: Radiologist's Impression: Preliminary read showing obliquely oriented displaced fracture of the proximal phalanx of the 5th digit MDM Narrative Medical decision making narrative: 64-year-old female with past medical history hyperlipidemia hypertension presenting for left pinky toe pain states that just prior to arrival she was walking and hit the toe on a safe at her home. Denies any other injuries traumas not on any blood thinners. On exam ecchymosis noted to the left pinky toe. Otherwise neurovascularly intact. Patient did have x-rays performed here did show proximal phalanx fracture, patient was placed in a jason tape and instructed to follow up with Orthopedic surgery in outpatient setting strict return precautions given she verbalized understanding of this and agrees to being discharged home with outpatient follow up Discharge Plan Departure Patient Disposition: Home Clinical Impression: Fracture of toe of left foot Qualifiers: Encounter type: initial encounter Toe: lesser toe Fracture type: closed Phalanx: proximal Fracture alignment: displaced Qualified Code(s): S92.512A - Displaced fracture of proximal phalanx of left lesser toe(s), initial encounter for closed fracture Instructions: DI for Toe Fracture Activity Restrictions/Additional Instructions: Please follow up with your primary care doctor and orthopedic surgeon Please read the discharge instructions sheet carefully and bring all papers to all doctor follow-up visits, as it may contain information that your doctor may want to see. Disease processes change and evolve, if your symptoms worsen or if you develop any new symptoms that are concerning to you please return for evaluation. Your evaluation today does not show any evidence of any life-threatening/serious illnesses requiring admission to the hospital or surgery. Please follow-up with your doctor for re-evaluation in approximately 1 day. Seek immediate medical attention for any worrisome symptoms. *If you do not have a primary care provider please contact the [facility] Resource line at [phone]. They will ask some questions about your medical history and help get you set up with a doctor in the community. Prescriptions: No Action atorvastatin 20 mg tablet 40 mg PO DAILY lisinopril 10 MG tablet 40 mg PO HS Qty: 0 amlodipine 5 mg tablet 5 mg PO DAILY meloxicam 7.5 mg Tablet 7.5 mg PO DAILY Referrals: Andrei Wilkerson MD [Physician, Orthopedic Surgery] Ivone Manning PA-C [Primary Care Provider, Medical] Stand Alone Forms: Patient Portal/API
--- NOTE | 2024-09-14 02:48 | DI.RAD.S_ITS ---
PROCEDURE: XR TOE LT MIN 2V INDICATIONS: trauma to pinky toe TECHNIQUE: AP view of the foot and 2 additional views of the 5th toe(s) acquired. COMPARISON: None. FINDINGS: Bones: There is a fracture of the proximal phalanx of the 5th toe, with intra- articular involvement proximally, which is best seen on the lateral image. Generalized degenerative changes are seen. Soft tissues: No suspicious soft tissue densities. IMPRESSION: Fifth toe fracture, with intra-articular involvement involving the proximal aspect of the proximal phalanx. Age-appropriate bony degenerative changes are seen. Note: No significant discrepancy from the preliminary report. Dictated by: Feliz Davenport M.D. on 09/14/2024 at 6:39 Approved by: Feliz Davenport M.D. on 09/14/2024 at 6:40
[2024-09-14 03:51] VITALS: BP 140/89; PULSE 65; RESP 16; O2SAT 98
== END 2024-09-14 03:52 | disposition home or self-care (01) ==
PROVIDERS: Emergency Provider Student in an Organized Health Care Education/Training Program; PCP Physician Assistant
DX: S92.512A Displaced fracture of proximal phalanx of left lesser toe(s), initial encounter for closed fracture (principal); W22.8XXA Striking against or struck by other objects, initial encounter
CPT/HCPCS: 73660; 99281; 99283